=== PATIENT | female | born 1965 | race African-American/Black ===

== ENCOUNTER 2017-01-10 10:25 | Emergency (ER) | payer OTHER ==
[~2017-01-10] VITALS: Ht 162.6 cm; Wt 73.5 kg
[2017-01-10 10:31] VITALS: Ht 162.6 cm; Wt 73.5 kg
[2017-01-10] MEDS ORDERED: AMI10 PO (11:35)
[2017-01-10] MEDS ORDERED: HYDR-906 PO (11:35)
--- NOTE | 2017-01-10 11:38 | ERD ---
ER Documentation Chief Complaint Date/Time DATE: 01/10/17 TIME: 11:36 Chief Complaint PT with RUQ AP, had shingles there recently. HPI This 51-year-old female complains of pain in the right abdomen and right flank. She has a history of shingles diagnosed approximately 4 months ago which was at his second recurrence. She had an initial evaluation of her gallbladder and liver and kidneys before the rash started. Patient is on acyclovir. Patient is requesting medication for pain. Patient denies fevers, vomiting, lower abdominal pain, urinary complaints. ROS All systems reviewed and are negative except as per history of present illness. Medications Home Meds Active Scripts Amitriptyline Hcl* (Elavil*) 10 Mg Tab, 10 MG PO TID for PAIN, #15 TAB Prov:GAURANG JARA MD 01/10/17 Hydrocodone/Acetaminophen (Mcgraw 5-325 Tablet) 1 Each Tablet, 1 TAB PO Q6H Y for PAIN, #15 TAB Prov:GAURANG JARA MD 01/10/17 Physical Exam Vitals Vital Signs Date Time Temp Pulse Resp B/P Pulse Ox O2 Delivery O2 Flow Rate FiO2 01/10/17 10:31 97.8 69 16 123/80 100 Physical Exam Const: [] Alert, not ill-appearing. Head: Atraumatic Eyes: Normal Conjunctiva ENT: Normal External Ears, Nose and Mouth. Neck: Full range of motion..~ No meningismus. Resp: Clear to auscultation bilaterally Cardio: Regular rate and rhythm, no murmurs Abd: Soft, non tender, non distended. Normal bowel sounds. There is some mild tenderness in the right upper abdomen in the area of the rash. There is no rebound and no tenderness at McBurney's point and no significant flank tenderness. Skin: No petechiae or purpura. There is an excoriated rash on the right flank. Back: No midline or flank tenderness Ext: No cyanosis, or edema Neur: Awake and alert Psych: Normal Mood and Affect Procedures/MDM Patient presents with right upper quadrant abdominal pain associated with a rash and history of shingles. Etiologies of abdominal pain were discussed with the patient. She insists that she had a normal evaluation of her gallbladder kidneys and intra-abdominal etiologies prior to being diagnosed with shingles and is confident that it is pain from her shingles. We will defer evaluation for other etiologies of abdominal pain given patient request, and given that the patient has no fevers vomiting, or symptoms concerning for additional causes of abdominal pain currently., vomiting. Patient was counseled that she should return immediately for fevers, vomiting, urinary complaints, new worsening symptoms otherwise continue acyclovir and follow with primary care doctor. We will give a short course of Mcgraw and Elavil for neuropathic pain. The patient was stable with no new complaints during the ER course. Clinically, there is no current evidence to suggest meningitis, sepsis, acute abdomen, pneumonia, acute coronary syndrome, pulmonary embolism, or any other emergent condition appearing to require further evaluation or hospitalization. The patient should certainly return for any new or worsening symptoms per the aftercare instructions. They should otherwise follow-up with her primary care doctor for reevaluation this week. Departure Diagnosis: Primary Impression: Abdominal pain Abdominal location: upper abdomen, unspecified Qualified Code: R10.10 - Pain of upper abdomen Additional Impression: Zoster Herpes zoster complications: without complications Qualified Code: B02.9 - Herpes zoster without complication Condition: Stable Patient Instructions: Abdominal Pain, Herpes Zoster Additional Instructions: Recheck for new or worsening symptoms such as fevers, vomiting, urinary problems. Follow-up with primary care doctor. GAURANG JARA MD Jan 10, 2017 11:38
== END 2017-01-10 11:55 | disposition home or self-care (01) ==
LOC: FTE 10:25
DX: R10.11 Right upper quadrant pain (principal); B02.9 Zoster without complications
CPT/HCPCS: 99284